=== PATIENT | female | born 1955 | race Caucasian/White ===

== ENCOUNTER 2016-08-20 12:20 | Day surgery (SDC) | payer OTHER ==
[~2016-08-20] VITALS: Ht 160 cm; Wt 104.8 kg
[~2016-08-20 12:20] MED LIST: CARV3.122 PO; GABA-502 PO; HYDR-4003 PO; ROSU5TAB PO; Sodium Chloride LOK Flush 10 mL Syringe IVFLUSH SCH; TAPE50TA7 PO; VENL50TA3 PO; fentaNYL-PF 50 mCg/mL 2 mL Inj IVPUSH PRN
[2016-08-20] MEDS ORDERED: Lidocaine PF 1% 5 mL Inj ONE (12:21)
[2016-08-20] MEDS ORDERED: Bupivacaine-MPF 0.25% 30 mL Inj ONE (12:21)
[2016-08-20 13:11] VITALS: BP 143/88; PULSE 83; RESP 16; O2SAT 96
[2016-08-20] MEDS ORDERED: Clindamycin 900 mg/50 mL D5W Premix IV ONE (13:23)
[2016-08-20] MEDS: Clindamycin 900 mg/50 mL D5W Premix IV ONE ×2 (13:28→13:50)
[2016-08-20 14:47] VITALS: BP 119/87; PULSE 84; RESP 16; O2SAT 95
[2016-08-20 14:57] VITALS: BP 115/78; PULSE 77; RESP 16; O2SAT 97
[2016-08-20 15:07] VITALS: BP 117/83; PULSE 76; RESP 16; O2SAT 96
--- NOTE | 2016-08-20 15:14 | PCM.PROC ---
Procedure Note Date of Service: August 20, 2016 Pre Procedure Diagnosis: PROCEDURE: Spinal cord stimulation trial, dual lead placement. PREOPERATIVE DIAGNOSIS(ES) * Chronic low back pain PREOPERATIVE NOTE Procedure and potential complications were explained and informed signed consent was obtained. The skin was marked. The patient was taken to the fluoroscopy suite. DESCRIPTION The patient was placed prone on the fluoroscopic table. A pillow was placed under the abdomen to alleviate the lumbar lordosis. Image intensifier was centered to the thoracolumbar junction with visualization of L1-L2, L2-L3 interlaminar spaces. Skin was prepped and draped in the usual sterile fashion. Cardiovascular monitor was applied and. Skin was anesthetized with 1% lidocaine at the site of L2 pedicle bilaterally. A 25-gauge spinal needle 3-1/2 inches was inserted sequentially right and the left side and advanced or until it contacted the lamina of L2. The tract of the needle was anesthetized with lidocaine as well. From the right side paramedian approach a 14-gauge Hustead needle was advanced and placed into the laminar space under fluoroscopic view using the loss of resistance device. Through the needle, 8 contact electrodes ([employer], [place], [place]) was then inserted and advanced into the epidural space from the right to the left and placed at T7T9. In the same fashion, the needle was inserted from the left side and the same type of lead was positioned almost at the midline at T7-T9. The stimulation was performed. The needles were removed over the leads as well as stylets. The leads were glued to the skin with Dermabond. The fluoroscopy images were recorded on AP and lateral view also spiral localization of that final needle position was performed. The leads were fixed to the skin with the Sterifix device. The patient tolerated the procedure well. There was no complication observed during or immediately after the procedure. The patient was instructed to continue pain and activity diary without activity limitations. ANESTHESIA: Local 2 mg Versed, 200 g fentanyl EBL: None. No Blood Products Used COMPLICATIONS: None SPECIMENS: None The patient will be seen in 1 week for lead removal and conclusion of trial. Fluoroscopy time: See Radiology record Rich De Guzman MD * Pain Management * Anesthesiology Rich De Guzman MD August 20, 2016 15:14
[2016-08-20 15:17] VITALS: BP 123/82; PULSE 76; RESP 16; O2SAT 95
== END 2016-08-20 23:59 | disposition home or self-care (01) ==
LOC: END 12:20
PROVIDERS: ATTEND Anesthesiology Pain Medicine
DX: G89.4 Chronic pain syndrome (principal); M54.9 Dorsalgia, unspecified; Z87.891 Personal history of nicotine dependence
CPT/HCPCS: 63650; 99153; C1897; G0500; J2250; J3010; J7030